=== PATIENT | male | born 1975 | race Caucasian/White ===

== ENCOUNTER 2020-08-14 21:21 | Emergency (ER) | payer MEDICAID ==
[~2020-08-14] VITALS: Ht 180.3 cm; Wt 107.4 kg
[2020-08-14 21:45] VITALS: BP 151/76
[2020-08-15] MEDS ORDERED: CEPH-585 PO (11:59)
== END 2020-08-15 01:01 | disposition left against medical advice (07) ==
LOC: ER 21:24
DX: S81.811A Laceration without foreign body, right lower leg, initial encounter (principal); Z53.21 Procedure and treatment not carried out due to patient leaving prior to being seen by health care provider; W45.8XXA Other foreign body or object entering through skin, initial encounter; Y93.89 Activity, other specified; Y92.89 Other specified places as the place of occurrence of the external cause; Y99.8 Other external cause status

== ENCOUNTER 2020-08-15 08:54 | Emergency (ER) | payer MEDICAID ==
[~2020-08-15] VITALS: Ht 180.3 cm; Wt 108.7 kg
[2020-08-15] MEDS ORDERED: TETanus/Pertussis (Acell)/Diphther VAC/PF (Tdap-Adult) 0.5ml syringe IMVAC ONE (10:30)
[2020-08-15] MEDS ORDERED: LIDOcaine 1% W/epiNEPHrine 1:200,000 10ml vial IJ ONE (10:40)
[2020-08-15 11:06] VITALS: BP 138/86
[2020-08-15] MEDS ORDERED: CEPH-585 PO (11:59)
[2020-08-15] MEDS ORDERED: bacitracin 15gm ointment TP ONE (12:00)
== END 2020-08-15 12:25 | disposition home or self-care (01) ==
LOC: ER 08:55
DX: S81.811A Laceration without foreign body, right lower leg, initial encounter (principal); Z72.89 Other problems related to lifestyle; Z79.899 Other long term (current) drug therapy; W26.8XXA Contact with other sharp object(s), not elsewhere classified, initial encounter; Y93.89 Activity, other specified; Y92.89 Other specified places as the place of occurrence of the external cause; Y99.8 Other external cause status
CPT/HCPCS: 12032; 73590; 90471; 90715; 99284